=== PATIENT | female | born 1995 | race Caucasian/White ===

== ENCOUNTER 2016-03-09 19:22 | Emergency (ER) | payer OTHER ==
[~2016-03-09] VITALS: Ht 162.6 cm; Wt 54.4 kg
[2016-03-09 20:41] VITALS: BP 111/80
== END 2016-03-09 21:10 | disposition home or self-care (01) ==
LOC: ER 19:28
DX: H66.91 Otitis media, unspecified, right ear (principal)
CPT/HCPCS: 99283; A4606; Z7610

== ENCOUNTER 2016-03-10 10:27 | Emergency (ER) | payer OTHER ==
[~2016-03-10] VITALS: Ht 152.4 cm; Wt 54.4 kg
[2016-03-10] MEDS ORDERED: IBUPROFEN 600 MG TABLET PO ONE ×2 (11:00→11:06)
[2016-03-10 11:17] LABS: KETONES,URINE NEGATIVE (NEGATIVE); LEUKOCYTE ESTERASE ,URINE TRACE (NEGATIVE); PH,URINE 6.5 (5.0-8.0)
[2016-03-10 11:21] LABS: ADD UA MICROSCOPIC YES
[2016-03-10 11:31] VITALS: BP 122/85
[2016-03-10 11:53] LABS: ADD URINE CULTURE NO; RBC,URINE 0-2 /HPF (0-2); WBC,URINE 0-5 /HPF (0-3)
[2016-03-10 11:54] LABS: MUCUS,URINE Few /LPF (None Seen)
== END 2016-03-10 11:32 | disposition home or self-care (01) ==
LOC: ER 10:29
DX: H60.11 Cellulitis of right external ear (principal); J02.9 Acute pharyngitis, unspecified; F17.210 Nicotine dependence, cigarettes, uncomplicated
CPT/HCPCS: 81001; 99283; A4606; Z7610; 81000-TC